=== PATIENT | male | born 1980 | race African-American/Black ===

== ENCOUNTER 2018-05-05 01:14 | Emergency (ER) | payer SELFPAY ==
--- NOTE | 2018-05-05 01:38 | EDM.PDOC ---
ED HPI GENERAL MEDICAL PROBLEM - General Chief Complaint: Upper Extremity Injury/Pain Stated Complaint: WRIST PAIN Time Seen by Provider: 05/05/18 01:38 Source of Information: Reports: Patient, RN Notes Reviewed - History of Present Illness INITIAL COMMENTS - FREE TEXT/NARRATIVE: 38-year-old male slipped on the ice last evening injuring right wrist. He continues to have quite severe pain primarily radial aspect of wrist worse with motion. No other pain or injury from this fall. Right Wrist Pain Score (Numeric/FACES): 9 - Related Data Allergies Allergy/AdvReac Type Severity Reaction Status Date / Time amoxicillin Allergy Swollen Verified 05/05/18 01:25 Tongue Home Meds: Home Meds . [No Known Home Meds] 05/05/18 [History] Social & Family History - Tobacco Use Smoking Status *Q: Current Every Day Smoker Years of Tobacco use: 15 Packs/Tins Daily: 1 - Caffeine Use Caffeine Use: Reports: None - Recreational Drug Use Recreational Drug Use: No Review of Systems - Review of Systems Review Of Systems: See Below Eyes: Reports: No Symptoms Ears: Reports: No Symptoms Nose: Reports: No Symptoms Respiratory: Denies: Shortness of Breath Cardiovascular: Denies: Chest Pain GI/Abdominal: Denies: Nausea, Vomiting Musculoskeletal: Reports: Joint Pain Skin: Reports: No Symptoms (Right wrist) Neurological: Reports: No Symptoms ED EXAM, GENERAL - Physical Exam Exam: See Below General Appearance: Alert, Mild Distress Head: Atraumatic Neck: Supple Respiratory/Chest: No Respiratory Distress, Lungs Clear, Normal Breath Sounds Extremities: Other (Moderate tenderness radial aspect right wrist, ulnar side is nontender. Question very mild swelling radial aspect. No visible deformity, pain with flexion and extension of wrist. Hand otherwise nontender) Neurological: No Motor/Sensory Deficits Skin Exam: Warm, Dry, Normal Color Course - Vital Signs Last Recorded V/S: Last Vital Signs Temp 99 F 05/05/18 01:21 Pulse 69 05/05/18 01:21 Resp 18 05/05/18 01:21 BP 135/85 05/05/18 01:21 Pulse Ox 98 05/05/18 01:21 - Orders/Labs/Meds Orders: Active Orders 24 hr Category Date Time Status Wrist Comp Min 3V Rt [CR] Stat Exams 05/05/18 01:41 Ordered - Re-Assessments/Exams Free Text/Narrative Re-Assessment/Exam: 05/05/18 02:17 X-rays no fracture Departure - Departure Time of Disposition: 02:17 Disposition: Home, Self-Care 01 Condition: Fair Clinical Impression: Fall Qualifiers: Encounter type: initial encounter Qualified Code(s): W19.XXXA - Unspecified fall, initial encounter Right wrist sprain Qualifiers: Encounter type: initial encounter Qualified Code(s): S63.501A - Unspecified sprain of right wrist, initial encounter - Discharge Information Referrals: PCP,Not In Area [Primary Care Provider] - Forms: ED Department Discharge Additional Instructions: Ice packs and elevation if needed for swelling, wrist splint until pain resolving, you may alternate Tylenol and ibuprofen as needed for discomfort, checked by medical provider if not getting back to normal within 8-10 days as expected. - My Orders Last 24 Hours: My Active Orders 05/05/18 01:41 Wrist Comp Min 3V Rt [CR] Stat - Assessment/Plan Last 24 Hours: My Active Orders 05/05/18 01:41 Wrist Comp Min 3V Rt [CR] Stat
--- NOTE | 2018-05-05 07:17 | CR ---
Right wrist: Four views of the right wrist were obtained. Comparison: No previous wrist exam. Joint spaces are preserved. No fracture, dislocation or other bony abnormality is seen. Impression: 1. No abnormality is appreciated on right wrist exam. Diagnostic code #1
== END 2018-05-05 02:26 | disposition home or self-care (01) ==
LOC: JD.ED 01:14
DX: S63.501A Unspecified sprain of right wrist, initial encounter (principal); F17.210 Nicotine dependence, cigarettes, uncomplicated; Z88.1 Allergy status to other antibiotic agents; W00.0XXA Fall on same level due to ice and snow, initial encounter
CPT/HCPCS: 73110-26-RT; 73110-RT; 99283